=== PATIENT | female | born 1935 | race African-American/Black ===

== ENCOUNTER 2017-01-20 00:34 | Observation (INO) | payer MEDICARE ==
[2017-01-20] VITALS (8 sets, daily range): BP systolic 130–163; BP diastolic 69–91; PULSE 69–84; RESP 16–18; TEMP 97.7–98.1; O2SAT 94–98
[~2017-01-20 00:34] MED LIST: NORV2.5T PO; TEGR200T PO
[2017-01-20] MEDS ORDERED: MORPHINE SULFATE 4 MG/ML INJ IV PUSH ONE (02:00)
[2017-01-20] MEDS ORDERED: SODIUM CHLORIDE 0.9% FLUSH 10 ML FLUSH IVF PRN (02:00)
--- NOTE | 2017-01-20 02:44 | RADRPT ---
EXAM DATE/TIME: 01/20/2017 02:15 [facility] COMPARISON: CHEST SINGLE AP, August 18, 2015, 19:39. INDICATIONS : Chest pain. MEDICAL HISTORY : None. SURGICAL HISTORY : None. ENCOUNTER: Initial ACUITY: 1 day PAIN SCORE: 9/10 LOCATION: Bilateral chest FINDINGS: A single view of the chest demonstrates the lungs to be symmetrically aerated without evidence of mas s, infiltrate or effusion. The cardiomediastinal contours are unremarkable. Osseous structures are intact. CONCLUSION: No acute disease. Eugene Lopez Jr., MD on January 20, 2017 at 2:43 Board Certified Radiologist. This report was verified electronically.
[2017-01-20 03:06] LABS: ALT (GPT) 49 U/L (10-53); ANION GAP 9 MEQ/L (5-15); AST (GOT) 37 U/L (15-37); BICARBONATE 27.9 MEQ/L (21.0-32.0); BLOOD UREA NITROGEN 11 MG/DL (7-18); CHLORIDE 103 MEQ/L (98-107); GLOMERULAR FILTRATION RATE 102 ML/MIN (>89); POTASSIUM 3.4 MEQ/L (3.5-5.1); SODIUM (NA) 140 MEQ/L (136-145)
[2017-01-20 03:08] LABS: ALKALINE PHOSPHATASE 87 U/L (45-117); CREATINE KINASE 250 U/L (26-192); TOTAL BILIRUBIN ADULT 0.7 MG/DL (0.2-1.0)
[2017-01-20 03:08] LABS: AUTOMATED NEUTROPHIL # 4.5 TH/MM3 (1.8-7.7); BASOPHIL # 0.1 TH/MM3 (0-0.2); BASOPHIL % 0.8 % (0.0-2.0); EOSINOPHIL # 0.1 TH/MM3 (0-0.4); EOSINOPHIL % 1.1 % (0.0-4.0); HEMATOCRIT 33.5 % (35.0-46.0); HEMO FLAGS DIFF FINAL; LYMPH % 18.3 % (9.0-44.0); LYMPHOCYTE # 1.2 TH/MM3 (1.0-4.8); MEAN CELL VOLUME 93.4 FL (80.0-100.0); MEAN CORPUSCULAR HEMOGLOBIN 31.9 PG (27.0-34.0); MEAN CORPUSCULAR HGB CONC 34.2 % (32.0-36.0); MONO % 11.7 % (0.0-8.0); NEUT % 68.1 % (16.0-70.0); PLATELET COUNT 249 TH/MM3 (150-450); RED BLOOD COUNT 3.59 MIL/MM3 (4.00-5.30); WHITE BLOOD COUNT 6.7 TH/MM3 (4.0-11.0)
[2017-01-20 03:26] LABS: CKMB 2.1 NG/ML (0.5-3.6)
[2017-01-20 03:46] LABS: PROTHROMBIN TIME - PATIENT 11.4 SEC (9.8-11.6)
[2017-01-20] MEDS ORDERED: CYCLOBENZAPRINE HCL 10 MG TAB PO ONE (04:30)
[2017-01-20] MEDS ORDERED: ACETAMINOPHEN 325 MG TAB PO ONE (04:30)
--- NOTE | 2017-01-20 05:54 | PD ---
HPI Chief Complaint: Pain: Acute or Chronic Time Seen by Provider: 01:38 Travel History International Travel<30 days: No Contact w/Intl Traveler<30days: No Traveled to known affect area: No History of Present Illness HPI Patient is an 81 year old female who comes in complaining of chest pain. She says the pain is in the left side of her chest and moves around. She says it started just prior to arrival. She says she has some SOB. She denies nausea or vomiting. She denies cough, fever, chills. PFSH Past Medical History Arthritis: Yes Asthma: No Autoimmune Disease: No Blood Disorders: No Anxiety: No Depression: No Heart Rhythm Problems: Yes (HX TACHYCARDIA) Cancer: Yes (LEFT BREAST, HAD LUMPECTOMY) Cardiovascular Problems: Yes High Cholesterol: Yes Chemotherapy: No Chest Pain: Yes Congestive Heart Failure: No COPD: No Cerebrovascular Accident: No Diabetes: No Diminished Hearing: Yes Endocrine: No Gastrointestinal Disorders: Yes (REFLUX) GERD: Yes Genitourinary: No Headaches: No Hiatal Hernia: No Hypertension: Yes Immune Disorder: No Implanted Vascular Access Dvce: No Musculoskeletal: Yes (ARTHRITIS) Neurologic: Yes (facial nerve pain) Psychiatric: No Reproductive: No Respiratory: No Immunizations Current: Yes Migraines: No Myocardial Infarction: No Radiation Therapy: Yes (ON LEFT BREAST, [place] 2001) Seizures: No Sleep Apnea: No Thyroid Disease: No Ulcer: No Menopausal: Yes : 0 Para: 0 Miscarriage: 0 : 0 Past Surgical History Abdominal Surgery: Yes (CHOLECYSTECTOMY) Appendectomy: Yes Cholecystectomy: Yes Gynecologic Surgery: Yes Joint Replacement: Yes (LEFT KNEE REPLACEMENT 01/2012) Other Surgery: Yes (LUMPECTOMY LEFT BREAST) Social History Alcohol Use: No Tobacco Use: No Substance Use: No Allergies-Medications (Allergen,Severity, Reaction): Coded Allergies: No Known Allergies (Verified , 01/20/17) Reported Meds & Prescriptions Reported Meds & Active Scripts Active Reported Norvasc (Amlodipine Besylate) 2.5 Mg Tab 2.5 Mg PO DAILY Tegretol (Carbamazepine) 200 Mg Tab 200 Mg PO BID Review of Systems Except as stated in HPI: all other systems reviewed are Neg General / Constitutional: No: Fever, Chills Eyes: No: Blurred Vision HENT: No: Headaches Cardiovascular: Positive: Chest Pain or Discomfort Respiratory: Positive: Shortness of Breath, No: Cough Gastrointestinal: No: Nausea, Vomiting, Abdominal Pain Musculoskeletal: Positive: Pain Skin: No Rash, No Change in Pigmentation Neurologic: No: Weakness, Dizziness Physical Exam Narrative GENERAL: Awake and alert, in no acute distress. SKIN: Focused skin assessment warm/dry. HEAD: Atraumatic. Normocephalic. EYES: Pupils equal and round. No scleral icterus. ENT: Mucous membranes pink and moist. NECK: Trachea midline. No JVD. CARDIOVASCULAR: Regular rate and rhythm. No murmur appreciated. RESPIRATORY: No accessory muscle use. Clear to auscultation. Breath sounds equal bilaterally. GASTROINTESTINAL: Abdomen soft, non-tender, nondistended. Hepatic and splenic margins not palpable. MUSCULOSKELETAL: No obvious deformities. No clubbing. No cyanosis. No edema. NEUROLOGICAL: Awake and alert. No obvious cranial nerve deficits. Motor grossly within normal limits. Normal speech. PSYCHIATRIC: Appropriate mood and affect; insight and judgment normal. Data Data Last Documented VS Vital Signs Date Time Temp Pulse Resp B/P Pulse Ox O2 Delivery O2 Flow Rate FiO2 01/20/17 03:06 78 16 163/72 97 Room Air Orders B-Type Natriuretic Peptide (01/20/17 01:53) Ckmb (Isoenzyme) Profile (01/20/17 01:53) Complete Blood Count With Diff (01/20/17 01:53) Comprehensive Metabolic Panel (01/20/17 01:53) Magnesium (Mg) (01/20/17 01:53) Prothrombin Time / Inr (Pt) (01/20/17 01:53) Act Partial Throm Time (Ptt) (01/20/17 01:53) Troponin I (01/20/17 01:53) Chest, Single Ap (01/20/17 01:53) Ecg Monitoring (01/20/17 01:53) Bilateral Bp Monitoring (01/20/17 01:53) Iv Access Insert/Monitor (01/20/17 01:53) Oximetry (01/20/17 01:53) Oxygen Administration (01/20/17 01:53) Morphine Inj (Morphine Inj) (01/20/17 02:00) Sodium Chloride 0.9% Flush (Ns Flush) (01/20/17 02:00) CKMB (01/20/17 02:00) CKMB% (01/20/17 02:00) Cyclobenzaprine (Flexeril) (01/20/17 04:30) Acetaminophen (Tylenol) (01/20/17 04:30) Aspirin Chew (Aspirin Chew) (01/20/17 06:00) Activity Bed Rest With Brp (01/20/17 05:52) Vital Signs (Adult) Q4H (01/20/17 05:52) Cardiac Rhythm .As Directed (01/20/17 05:52) ^ Notify Dr: Other .PRN (01/20/17 05:52) ^ Notify Dr. Parameters (01/20/17 05:52) Resp Oxygen Nasal Cannula (01/20/17 ) Diet Heart Healthy (01/20/17 Breakfast) Ckmb (Isoenzyme) Profile (01/20/17 05:52) Ckmb (Isoenzyme) Profile (01/20/17 08:52) Troponin I (01/20/17 05:52) Troponin I (01/20/17 08:52) Electrocardiogram (01/20/17 05:52) Electrocardiogram (01/20/17 08:52) ^ Obtain (01/20/17 05:52) Sodium Chloride 0.9% Flush (Ns Flush) (01/20/17 06:00) Sodium Chloride 0.9% Flush (Ns Flush) (01/20/17 09:00) Culinary Assistant / Telemetry DWAINE.Q8H (01/20/17 05:52) Admit Order (Ed Use Only) (01/20/17 ) Labs Laboratory Tests Test 01/20/17 01/20/17 02:00 02:55 Sodium Level 140 MEQ/L Potassium Level 3.4 MEQ/L Chloride Level 103 MEQ/L Carbon Dioxide Level 27.9 MEQ/L Anion Gap 9 MEQ/L Blood Urea Nitrogen 11 MG/DL Creatinine 0.67 MG/DL Estimat Glomerular Filtration 102 ML/MIN Rate Random Glucose 77 MG/DL Calcium Level 9.0 MG/DL Magnesium Level 2.0 MG/DL Total Bilirubin 0.7 MG/DL Aspartate Amino Transf 37 U/L (AST/SGOT) Alanine Aminotransferase 49 U/L (ALT/SGPT) Alkaline Phosphatase 87 U/L Total Creatine Kinase 250 U/L Creatine Kinase MB 2.1 NG/ML Creatine Kinase MB % 0.8 % Troponin I LESS THAN 0.02 NG/ML B-Type Natriuretic Peptide 20 PG/ML Total Protein 7.4 GM/DL Albumin 2.9 GM/DL White Blood Count 6.7 TH/MM3 Red Blood Count 3.59 MIL/MM3 Hemoglobin 11.5 GM/DL Hematocrit 33.5 % Mean Corpuscular Volume 93.4 FL Mean Corpuscular Hemoglobin 31.9 PG Mean Corpuscular Hemoglobin 34.2 % Concent Red Cell Distribution Width 13.0 % Platelet Count 249 TH/MM3 Mean Platelet Volume 7.8 FL Neutrophils (%) (Auto) 68.1 % Lymphocytes (%) (Auto) 18.3 % Monocytes (%) (Auto) 11.7 % Eosinophils (%) (Auto) 1.1 % Basophils (%) (Auto) 0.8 % Neutrophils # (Auto) 4.5 TH/MM3 Lymphocytes # (Auto) 1.2 TH/MM3 Monocytes # (Auto) 0.8 TH/MM3 Eosinophils # (Auto) 0.1 TH/MM3 Basophils # (Auto) 0.1 TH/MM3 CBC Comment DIFF FINAL Differential Comment Prothrombin Time 11.4 SEC Prothromb Time International 1.0 RATIO Ratio Activated Partial 27.0 SEC Thromboplast Time MDM Medical Decision Making Medical Screen Exam Complete: Yes Emergency Medical Condition: Yes Medical Record Reviewed: Yes Interpretation(s) ECG shows NSR at 81, RBBB Differential Diagnosis musculoskeletal pain, acs, NSTEMI, STEMI Narrative Course Patient is a 81 year old female complaining of chest pain. Exam shows no acute abnormalities. IV established labs sent. Given pain medicine. Given aspirin. Labs show no acute abnormalities. Patient placed in chest pain observation. Diagnosis Primary Impression: Chest pain Qualified Code: R07.9 - Chest pain, unspecified type Admitting Information Admitting Physician Requests: Observation Margarita Benson MD Jan 20, 2017 05:54
[2017-01-20] MEDS ORDERED: SODIUM CHLORIDE 0.9% FLUSH 10 ML FLUSH IV FLUSH PRN (06:00)
[2017-01-20] MEDS ORDERED: ASPIRIN 81 MG CHEW TAB CHEW ONE (06:00)
[2017-01-20 07:35] LABS: BACTERIA, URINE RARE /hpf; BLOOD, URINE SMALL (NEG); COMMENT (UR) CULT NOT INDICATED; CULTURE IF INDICATED CULT NOT INDICATED; GLUCOSE,URINE NEG (NEG); KETONE, URINE 10 mg/dL (NEG); MUCUS URINE FEW /lpf (OCC); NITRITE,URINE NEG (NEG); SQUAMOUS EPITHELIAL CELL URINE 2 /hpf (0-5); URINE COLOR YELLOW (YELLW/STRAW)
[2017-01-20 08:27] LABS: CREATINE KINASE 154 U/L (26-192)
[2017-01-20 08:39] LABS: CKMB 1.8 NG/ML (0.5-3.6)
[2017-01-20] MEDS ORDERED: KETOROLAC TROMETHAMINE 30 MG/ML (IVP) VIAL IVP ONE (08:45)
[2017-01-20] MEDS ORDERED: amLODIPine BESYLATE 5 MG TAB PO SCH (09:00)
[2017-01-20] MEDS ORDERED: carBAMazepine 200 MG TAB PO SCH (09:00)
[2017-01-20] MEDS ORDERED: SODIUM CHLORIDE 0.9% FLUSH 10 ML FLUSH IV FLUSH SCH (09:00)
--- NOTE | 2017-01-20 09:03 | HHI.HP ---
HPI Primary Care Physician Unknown Chief Complaint Left-sided chest pain History of Present Illness This is an 81-year-old female that presents to ED complaining of a constant left -sided chest discomfort that began yesterday. It is still there. It is worsened with any type of movement. She states she gets short of breath when the intensity increases. Denies inspirational chest discomfort. Denies nausea or diaphoresis. Denies history of CAD. She states she lives with her son. Denies recent illnesses. Review of Systems General: Patient denies fevers, chills recent, and recent travel HEENT: Patient denies headache, sore throat, difficulty swallowing. Cardiovascular: Has the chest discomfort as mentioned above. Denies sensation of heart beating rapidly or irregularly. No syncope. Respiratory: Complains of shortness of breath with increased intensity of the discomfort. Denies inspirational chest discomfort. Denies coughing wheezing or hemoptysis. GI: Patient denies nausea, vomiting, diarrhea, abdominal pain, bloody stools. Musculoskeletal: Patient denies joint pain or edema. Denies calf pain or edema. Neurovascular: Patient denies numbness, tingling, weakness in extremities. Denies headache. Endocrine: Denies polyuria and polydipsia. Hematologic: Denies easy bruising. Skin: Denies rash or itching. Past Family Social History Allergies: Coded Allergies: No Known Allergies (Verified , 01/20/17) Past Medical History Hypertension. Denies diabetes, hyperlipidemia, and CAD. Past Surgical History Noncontributory Reported Medications Reported Meds & Active Scripts Active Reported Norvasc (Amlodipine Besylate) 2.5 Mg Tab 2.5 Mg PO DAILY Tegretol (Carbamazepine) 200 Mg Tab 200 Mg PO BID Active Ordered Medications Current Medications Medications (Trade) Dose Ordered Sig/Matthew Route Start Time Stop Time Status Last Admin (NS Flush) 2 ml UNSCH PRN IVF 01/20/17 02:00 01/20/17 03:05 (NS Flush) 2 ml UNSCH PRN IV FLUSH 01/20/17 06:00 (NS Flush) 2 ml BID IV FLUSH 01/20/17 09:00 (Toradol Inj) 15 mg ONCE ONCE IVP 01/20/17 08:45 01/20/17 08:46 UNV Family History Family history is unknown. Social History Patient denies tobacco abuse, alcohol use, or illicit drug use. States she lives with her son. Physical Exam Vital Signs Vital Signs Date Time Temp Pulse Resp B/P Pulse Ox O2 Delivery O2 Flow Rate FiO2 01/20/17 08:30 97.7 82 18 144/69 98 01/20/17 07:30 81 18 98 Room Air 01/20/17 06:47 78 16 131/91 97 Room Air 01/20/17 03:06 78 16 163/72 97 Room Air 01/20/17 03:06 78 16 97 Room Air 01/20/17 03:06 97 Room Air 01/20/17 00:50 84 16 01/20/17 00:47 84 16 163/76 97 Physical Exam GENERAL: This is a well-nourished, well-developed patient, in no apparent distress. Patient speaks in clear complete sentences. Patient is pleasant. HEENT: Head is atraumatic and normocephalic. Neck is supple without lymphadenopathy and trachea is midline. No JVD or carotid bruits. CARDIOVASCULAR: Regular rate and rhythm without murmurs, gallops, or rubs. RESPIRATORY: Left chest wall is tender to palpate with even very light palpation more so on the lateral aspect. Clear to auscultation. Breath sounds equal bilaterally. No wheezes, rales, or rhonchi. No use of accessory muscles. GASTROINTESTINAL: Abdomen is nontender, nondistended. Abdomen soft. No obvious pulsatile mass or bruit. No CVA tenderness. Strong femoral pulses bilaterally. Normal bowel sounds in all quadrants. MUSCULOSKELETAL: Patient is moving upper and lower extremities freely. No calf tenderness or edema, no Homans sign. Strong pulses in upper and lower extremities. NEUROLOGICAL: Patient is alert and oriented. Cranial nerves 2-12 are grossly intact. No focal deficits and speech is clear. SKIN: No rash and turgor is normal. Laboratory Laboratory Tests Test 01/20/17 01/20/17 01/20/17 01/20/17 02:00 02:55 06:55 07:20 Sodium Level 140 Potassium Level 3.4 Chloride Level 103 Carbon Dioxide Level 27.9 Anion Gap 9 Blood Urea Nitrogen 11 Creatinine 0.67 Estimat Glomerular Filtration 102 Rate Random Glucose 77 Calcium Level 9.0 Magnesium Level 2.0 Total Bilirubin 0.7 Aspartate Amino Transf 37 (AST/SGOT) Alanine Aminotransferase 49 (ALT/SGPT) Alkaline Phosphatase 87 Total Creatine Kinase 250 154 Creatine Kinase MB 2.1 1.8 Creatine Kinase MB % 0.8 Troponin I LESS THAN 0.02 LESS THAN 0.02 B-Type Natriuretic Peptide 20 Total Protein 7.4 Albumin 2.9 White Blood Count 6.7 Red Blood Count 3.59 Hemoglobin 11.5 Hematocrit 33.5 Mean Corpuscular Volume 93.4 Mean Corpuscular Hemoglobin 31.9 Mean Corpuscular Hemoglobin 34.2 Concent Red Cell Distribution Width 13.0 Platelet Count 249 Mean Platelet Volume 7.8 Neutrophils (%) (Auto) 68.1 Lymphocytes (%) (Auto) 18.3 Monocytes (%) (Auto) 11.7 Eosinophils (%) (Auto) 1.1 Basophils (%) (Auto) 0.8 Neutrophils # (Auto) 4.5 Lymphocytes # (Auto) 1.2 Monocytes # (Auto) 0.8 Eosinophils # (Auto) 0.1 Basophils # (Auto) 0.1 CBC Comment DIFF FINAL Differential Comment Prothrombin Time 11.4 Prothromb Time International 1.0 Ratio Activated Partial 27.0 Thromboplast Time Urine Color YELLOW Urine Turbidity HAZY Urine pH 6.0 Urine Specific Perry 1.022 Urine Protein TRACE Urine Glucose (UA) NEG Urine Ketones 10 Urine Occult Blood SMALL Urine Nitrite NEG Urine Bilirubin NEG Urine Urobilinogen 4.0 Urine Leukocyte Esterase SMALL Urine RBC 2 Urine WBC 7 Urine Squamous Epithelial 2 Cells Urine Amorphous Sediment MANY Urine Bacteria RARE Urine Mucus FEW Microscopic Urinalysis Comment CULT NOT INDICATED Result Diagram: 01/20/17 0255 01/20/17 0200 Imaging Last Impressions Chest X-Ray 01/20/17 0153 Signed Impressions: Service Date/Time: Friday, January 20, 2017 02:15 - CONCLUSION: No acute disease. Eugene Lopez Jr., MD Course EKGs have sinus rhythm was sinus bradycardia without significant ST segment depressions or elevations. Borderline first-degree AV block. Assessment and Plan Assessment and Plan * Atypical chest pain: Patient had serial cardiac enzymes and EKGs for ruling out purposes. She was seen by Dr. Jt Tristan of cardiology in the chest pain center. Her discomfort does not appear to be cardiac related. We will get a d-dimer and ESR. Will also give Toradol. Patient likely be discharged home if d-dimer is negative. * Hypertension: Continue current medication. Vasile Chang Jan 20, 2017 09:03
--- NOTE | 2017-01-20 09:10 | EKG ---
Date Performed: 01/20/2017 Time Performed: 00:43:01 PTAGE: 81 years EKG: Sinus rhythm BORDERLINE LEFT AXIS DEVIATION RIGHT BUNDLE BRANCH BLOCK VOLTAGE CRITERIA FOR LVH ABNORMAL ECG NO PREVIOUS TRACING DOCTOR: Alexandru Jacobs Interpretating Date/Time 01/20/2017 09:09:49
[2017-01-20] MEDS ORDERED: PILL SPLITTER OTHER PRN (10:00)
[2017-01-20] MEDS ORDERED: IOHEXOL 350 MG/ML 10 ML VIAL (for RAD DIAG) IV ONE (12:28)
--- NOTE | 2017-01-20 13:02 | RADRPT ---
EXAM DATE/TIME: 01/20/2017 12:20 [facility] COMPARISON: No previous studies available for comparison. INDICATIONS : Left side chest painwith shortness of breath. IV CONTRAST: 68 cc Omnipaque 350 (iohexol) IV RADIATION DOSE: 22.90 CTDIvol (mGy) MEDICAL HISTORY : Cardiovascular disease. Hypertension. Carcinoma, breast. SURGICAL HISTORY : Appendectomy. Cholecystectomy. Lumpectomy ENCOUNTER: Initial ACUITY: 1 day PAIN SCALE: 2/10 LOCATION: Chest TECHNIQUE: Volumetric scanning of the chest was performed using a pulmonary embolism protocol MIP images were reconstructed. Using automated exposure control and adjustment of the mA and/or kV acco rding to patient size, radiation dose was kept as low as reasonably achievable to obtain optimal diag nostic quality images. FINDINGS: There are no suspicious lung lesions identified. There is a prominent goiter evident. There is no evidence for central pulmonary emboli. There is no significant coronary artery calcifica tions. There is no pericardial effusion. Portion of liver and spleen identified are free of focal defects. 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 CONCLUSION: There is no evidence for central pulmonary emboli. Jacques Lopez MD FACR on January 20, 2017 at 12:56 Board Certified Radiologist. This report was verified electronically.
--- NOTE | 2017-01-20 13:21 | HHI.DCPOC ---
Discharge Care Plan Diagnosis: (1) Chest pain, atypical (2) Hypertension Goals to Promote Your Health * To prevent worsening of your condition and complications * To maintain your health at the optimal level Directions to Meet Your Goals Take your medications as prescribed Follow your dietary instruction Follow activity as directed Keep your appointments as scheduled Take your immunizations and boosters as scheduled If your symptoms worsen call your PCP, if no PCP go to Urgent Care Center or Emergency Room Smoking is Dangerous to Your Health. Avoid second hand smoke Call the 24-hour hour crisis hotline for domestic abuse at Vasile Chang Jan 20, 2017 13:21
--- NOTE | 2017-01-21 13:47 | EKG ---
Date Performed: 01/20/2017 Time Performed: 07:27:53 PTAGE: 81 years EKG: Sinus rhythm WITH FIRST DEGREE AV BLOCK VOLTAGE CRITERIA FOR LVH ABNORMAL ECG PREVIOUS TRACING : 01/20/2017 00.43 Since previous tracing, no significant change noted DOCTOR: Jt Tristan Interpretating Date/Time 01/21/2017 13:46:37
== END 2017-01-20 15:01 | disposition home or self-care (01) ==
LOC: NEPC 00:34 → NEDA 05:55 → NEPFCDU 07:13 → NEDA 08:25 → NEPFCDU 10:15
PROVIDERS: ADMIT Internal Medicine Interventional Cardiology; ATTEND Internal Medicine Interventional Cardiology
DX: R07.89 Other chest pain (principal); I10 Essential (primary) hypertension; H91.90 Unspecified hearing loss, unspecified ear; Z96.652 Presence of left artificial knee joint; Z85.3 Personal history of malignant neoplasm of breast; Z92.3 Personal history of irradiation
CPT/HCPCS: 71010; 71275; 80053; 81001; 82550; 82552; 83735; 83880; 84484; 85025; 85379; 85610; 85652; 85730; 93005; 96374; 99285; G0378; J1885; J2270; Q9967

== ENCOUNTER 2017-12-01 08:55 | Emergency (ER) | payer MEDICARE ==
[~2017-12-01] VITALS: Ht 165.1 cm; Wt 65.0 kg
[2017-12-01 08:58] VITALS: BP 182/106; PULSE 91; RESP 14; TEMP 98.2; O2SAT 97
[2017-12-01 09:33] VITALS: BP 171/76; PULSE 85; RESP 18; O2SAT 97
[2017-12-01] MEDS ORDERED: IBUP1TAB7 PO (09:39)
--- NOTE | 2017-12-01 09:46 | PD ---
HPI . Left arm pain Chief Complaint: Pain: Acute or Chronic Time Seen by Provider: 09:38 Travel History International Travel<30 days: No Contact w/Intl Traveler<30days: No Traveled to known affect area: No History of Present Illness HPI Patient presents with chief complaint of left arm pain. Onset was yesterday. She states that it started in her neck but has left her neck and into her arm. She denies known injury. Pain is exacerbated by movement and palpation. Pain is relieved by Advil. She has no associated chest pain or shortness of breath. She rates the pain 8/10. PFSH Past Medical History Arthritis: Yes Asthma: No Autoimmune Disease: No Blood Disorders: No Anxiety: No Depression: No Heart Rhythm Problems: Yes (HX TACHYCARDIA) Cancer: Yes (LEFT BREAST, HAD LUMPECTOMY) Cardiovascular Problems: Yes High Cholesterol: Yes Chemotherapy: No Chest Pain: Yes Congestive Heart Failure: No COPD: No Cerebrovascular Accident: No Diabetes: No Diminished Hearing: Yes Endocrine: No Gastrointestinal Disorders: Yes (REFLUX) GERD: Yes Genitourinary: No Headaches: No Hiatal Hernia: No Hypertension: Yes Immune Disorder: No Implanted Vascular Access Dvce: No Musculoskeletal: Yes (ARTHRITIS) Neurologic: Yes (facial nerve pain) Psychiatric: No Reproductive: No Respiratory: No Immunizations Current: Yes Migraines: No Myocardial Infarction: No Radiation Therapy: Yes (ON LEFT BREAST, [place] 2001) Seizures: No Sleep Apnea: No Thyroid Disease: No Ulcer: No ?: Not Menopausal: Yes : 0 Para: 0 Miscarriage: 0 : 0 Past Surgical History Abdominal Surgery: Yes (CHOLECYSTECTOMY) Appendectomy: Yes Cholecystectomy: Yes Gynecologic Surgery: Yes Joint Replacement: Yes (LEFT KNEE REPLACEMENT 01/2012) Other Surgery: Yes (LUMPECTOMY LEFT BREAST) Social History Alcohol Use: No Tobacco Use: No Substance Use: No Allergies-Medications (Allergen,Severity, Reaction): Coded Allergies: No Known Allergies (Verified , 01/20/17) Reported Meds & Prescriptions Reported Meds & Active Scripts Active Ibuprofen 800 Mg Tab 800 Mg PO Q8H PRN Reported Norvasc (Amlodipine Besylate) 2.5 Mg Tab 2.5 Mg PO DAILY Tegretol (Carbamazepine) 200 Mg Tab 200 Mg PO BID Review of Systems Except as stated in HPI: all other systems reviewed are Neg Musculoskeletal: Positive: Myalgias, Limited ROM Physical Exam Narrative GENERAL: Awake and alert and in no acute distress. SKIN: Warm and dry. Normal color and turgor. HEAD: Normocephalic/atraumatic. EYES: Pupils are equal. Extraocular movements are intact. Delivery NECK: Normal range of motion. No tenderness to palpation of the cervical spine. CARDIOVASCULAR: Regular rate and rhythm. RESPIRATORY: Nonlabored respirations. MUSCULOSKELETAL: Left upper extremity has no deformity, swelling, bruising. No obvious inflammation of her joints. She does report diffuse tenderness to palpation in the musculature of the left upper extremity. NEUROLOGICAL: Nonfocal. PSYCHIATRIC: Appropriate mood and affect. Data Data Last Documented VS Vital Signs Date Time Temp Pulse Resp B/P (MAP) Pulse Ox O2 Delivery O2 Flow Rate FiO2 12/01/17 09:33 85 18 171/76 (107) 97 Room Air 12/01/17 08:58 98.2 Orders Orders Ed Discharge Order (12/01/17 09:40) MDM Medical Decision Making Medical Screen Exam Complete: Yes Emergency Medical Condition: Yes Medical Record Reviewed: Yes (patient has a history of hypertension. She was evaluated in the chest pain center about a year ago and discharged with the diagnosis of atypical chest pain.) Differential Diagnosis My differential diagnosis of muscle pain includes but is not limited to overuse , muscle spasm, strain Narrative Course This patient presents with atraumatic left upper extremity pain. On exam, her left upper extremity is tender to palpation. Her pain was relieved at home with Advil. She will be discharged home with a prescription for ibuprofen. Diagnosis Primary Impression: Left arm pain Patient Instructions: General Instructions Departure Forms: Tests/Procedures Scripts Ibuprofen (Ibuprofen) 800 Mg Tab 800 MG PO Q8H Y for Pain/Inflammation, #60 TAB 0 Refills Prov: Aster Orozco MD 12/01/17 Disposition: DISCHARGE HOME Condition: Stable Aster Orozco MD Dec 01, 2017 09:46
== END 2017-12-01 10:16 | disposition home or self-care (01) ==
LOC: NEPE 08:55
DX: M79.602 Pain in left arm (principal); I10 Essential (primary) hypertension; E78.00 Pure hypercholesterolemia, unspecified; K21.9 Gastro-esophageal reflux disease without esophagitis; M19.90 Unspecified osteoarthritis, unspecified site; Z85.3 Personal history of malignant neoplasm of breast
CPT/HCPCS: 99283